=== PATIENT | male | born 1955 ===

== ENCOUNTER 2022-12-14 05:35 | Day surgery (SDC) | payer OTHER | END 2022-12-14 13:25 | disposition home or self-care (01) | LOC: AMB-ENDOS 05:35 | PROVIDERS: ATTEND Colon & Rectal Surgery | DX: K63.5 Polyp of colon (principal); K52.89 Other specified noninfective gastroenteritis and colitis; K64.8 Other hemorrhoids; D64.89 Other specified anemias; Z20.822 Contact with and (suspected) exposure to COVID-19 ==